=== PATIENT | male | born 1940 | race Caucasian/White ===

== ENCOUNTER 2023-09-07 17:02 | Inpatient (IN) | payer MEDICARE ==
[~2023-09-07] VITALS: Ht 177.8 cm; Wt 81.8 kg
[~2023-09-07 17:02] MED LIST: ASPI-611 PO; FERR325C; HYDR25TA4 PO; METF1000 PO; OMEP20TA43 PO
[2023-09-07 21:01] LABS: BASOPHILS # (AUTO) 0.1 X10'3 (0-0.2); BASOPHILS % (AUTO) 1.5 % (0-1); EOSINOPHILS % (AUTO) 0.7 % (0-6); LYMPHOCYTES # (AUTO) 1.4 X10'3 (1.1-4.8); LYMPHOCYTES % (AUTO) 20.3 % (21-51); MEAN CORPUSCULAR HEMOGLOBIN 22.3 PG (27.0-31.0); MEAN CORPUSCULAR HGB CONC 31.7 g/dL (33.0-36.5); MEAN CORPUSCULAR VOLUME 70.4 FL (78-98); MONOCYTES # (AUTO) 0.8 X10'3 (0-0.9); MONOCYTES % (AUTO) 11.5 % (2-12); NEUTROPHILS # (AUTO) 4.6 X10'3 (1.8-7.7); PLATELET COUNT 261 X10'3 (140-440); RED BLOOD COUNT 2.29 X10'6 (4.70-6.10); RED CELL DISTRIBUTION WIDTH 16.9 % (11.5-14.5); WHITE BLOOD COUNT 6.9 X10'3 (4.5-11.0)
[2023-09-07 21:07] LABS: HEMATOCRIT 16.1 % (42.0-52.0); HEMOGLOBIN 5.1 g/dl (14.0-17.9)
[2023-09-07 21:19] LABS: ALBUMIN 4.1 G/DL (3.4-5.0); ANION GAP 14 (8-16); BLOOD UREA NITROGEN 40 MG/DL (7-18); BUN/CREATININE RATIO 18.9 (10.0-20.0); CALCIUM 9.6 MG/DL (8.5-10.1); CHLORIDE 104 MMOL/L (99-107); CREATININE 2.12 MG/DL (0.60-1.10); GLUCOSE 151 MG/DL (70-104); POTASSIUM 4.8 MMOL/L (3.5-5.1); PRO BRAIN NATRIURETIC PEPTIDE 2604 PG/ML (0-450); SODIUM 140 MMOL/L (135-145); TOTAL CARBON DIOXIDE 21.9 MMOL/L (24-32); eCRCL 26 ML/MIN; eGFR 30 ML/MIN
[2023-09-07] MEDS ORDERED: magnesium Cl slow-release 64mg tablet PO PRN (22:30)
[2023-09-07] MEDS ORDERED: mag hydrox/Alum hydrox/simeth 30ml oral suspension PO PRN (22:30)
[2023-09-07] MEDS ORDERED: magnesium 4gm in 100ml NS 100 ML IV PRN (22:30)
[2023-09-07] MEDS ORDERED: magnesium hydroxide 30ml (MOM) UD suspension PO PRN (22:30)
[2023-09-07] MEDS ORDERED: ondansetron/PF 4mg/2ml inj IV PRN (22:30)
[2023-09-07] MEDS ORDERED: magnesium 2GM in 50ml NS 50 ML IV PRN (22:30)
[2023-09-07] MEDS ORDERED: potassium Cl 20 mEq SR tablet PO PRN (22:30)
[2023-09-07] MEDS ORDERED: potassium Cl 40MEQ/1/2NS 520ml 520 ML IV PRN (22:30)
[2023-09-07 22:49] VITALS: BP 151/70; PULSE 87; RESP 16; TEMP 98.6
[2023-09-07 23:00] LABS: ALANINE AMINOTRANSFERASE 20 U/L (12-78); ALBUMIN/GLOBULIN RATIO 1.4 (1.1-1.5); ALKALINE PHOSPHATASE 36 IU/L (46-116); ASPARTATE AMINO TRANSFERASE 17 U/L (10-37); BILIRUBIN,DIRECT 0.1 MG/DL (0-0.3); BILIRUBIN,TOTAL 0.4 MG/DL (0.1-1.0); PHOSPHORUS 4.3 MG/DL (2.3-4.5); TOTAL PROTEIN 7.1 G/DL (6.4-8.2)
[2023-09-07] MEDS ORDERED: glucagon, human recombinant 1mg kit SUBCUT PRN (23:00)
[2023-09-07] MEDS ORDERED: dextrose 50%-water 50ml dispensing syringe IV PRN ×2 (23:00)
[2023-09-07] MEDS ORDERED: DEXTROSE 15 GM of carb/4 tabs (each vial/BOTTLE has 4 tablets) PO PRN ×2 (23:00)
[2023-09-07 23:03] LABS: APTT 20 SECONDS (22-32); PROTHROMBIN TIME 10.9 SECONDS (9.0-12.0)
[2023-09-07 23:06] VITALS: BP 146/61; PULSE 84; RESP 15; TEMP 98.8
[2023-09-07 23:23] LABS: HEMOGLOBIN A1C 5.5 % (4.5-6.2)
[2023-09-07 23:52] LABS: BILIRUBIN,URINE NEGATIVE (Neg); CLARITY,URINE CLEAR (Clear); COLOR,URINE YELLOW (Yellow); GLUCOSE, URINE NEGATIVE (Neg); KETONES,URINE NEGATIVE (Neg); LEUKOCYTE ESTERASE ,URINE NEGATIVE (Neg); NITRITES, URINE NEGATIVE (Neg); OCCULT BLOOD,URINE NEGATIVE (Neg); PH,URINE 5.5 (4.8-8.0); PROTEIN,URINE NEGATIVE (Neg); UROBILINOGEN,URINE 0.2 E.U/dL (0.2-1.0)
[2023-09-08] VITALS (25 sets, daily range): BP systolic 102–157; BP diastolic 46–83; PULSE 64–108; RESP 12–20; TEMP 97.2–99.3; O2SAT 96–99
[2023-09-08 00:03] LABS: UA COLLECTION TYPE NON-SPECIFIED
[2023-09-08] MEDS: pantoprazole 40 MG vial IV ONE (00:21)
[2023-09-08] MEDS: furosemide 10 MG/1 ML 10ml inj IV ONE (00:22)
[2023-09-08] MEDS: pantoprazole 40MG/NS 100ML BAG 100 ML IV SCH (01:52)
[2023-09-08] MEDS: hydrALAZINE 20mg/ml inj. IV SCH (02:36)
[2023-09-08 03:07] LABS: MEAN CORPUSCULAR HEMOGLOBIN 23.7 PG (27.0-31.0); MEAN CORPUSCULAR HGB CONC 31.8 g/dL (33.0-36.5); MEAN CORPUSCULAR VOLUME 74.6 FL (78-98); MEAN PLATELET VOLUME 8.1 FL (7.4-10.4); PLATELET COUNT 215 X10'3 (140-440); RED BLOOD COUNT 2.38 X10'6 (4.70-6.10); RED CELL DISTRIBUTION WIDTH 19.5 % (11.5-14.5); WHITE BLOOD COUNT 5.7 X10'3 (4.5-11.0)
[2023-09-08 03:16] LABS: HEMOGLOBIN 5.6 g/dl (14.0-17.9)
[2023-09-08 03:17] LABS: HEMATOCRIT 17.7 % (42.0-52.0)
[2023-09-08 03:43] LABS: ANISOCYTOSIS 1+; HYPOCHROMASIA 1+; MICROCYTOSIS 1+; PLATELET ESTIMATE NORMAL
[2023-09-08 03:44] LABS: BURR CELLS FEW; ELLIPTOCYTES FEW; SCHISTOCYTES FEW; TARGET CELLS FEW
[2023-09-08 06:30] LABS: BASOPHILS # (AUTO) 0.1 X10'3 (0-0.2); BASOPHILS % (AUTO) 1.4 % (0-1); EOSINOPHILS # (AUTO) 0.1 X10'3 (0-0.9); LYMPHOCYTES # (AUTO) 1.5 X10'3 (1.1-4.8); LYMPHOCYTES % (AUTO) 17.9 % (21-51); MEAN CORPUSCULAR HEMOGLOBIN 24.3 PG (27.0-31.0); MEAN CORPUSCULAR HGB CONC 32.7 g/dL (33.0-36.5); MEAN CORPUSCULAR VOLUME 74.5 FL (78-98); MEAN PLATELET VOLUME 8.1 FL (7.4-10.4); MONOCYTES # (AUTO) 1.2 X10'3 (0-0.9); MONOCYTES % (AUTO) 13.8 % (2-12); NEUTROPHILS # (AUTO) 5.6 X10'3 (1.8-7.7); NEUTROPHILS % (AUTO) 65.9 % (42-75); PLATELET COUNT 243 X10'3 (140-440); RED BLOOD COUNT 2.86 X10'6 (4.70-6.10); RED CELL DISTRIBUTION WIDTH 20.2 % (11.5-14.5); WHITE BLOOD COUNT 8.5 X10'3 (4.5-11.0)
[2023-09-08 06:37] LABS: HEMATOCRIT 21.3 % (42.0-52.0)
[2023-09-08 06:45] LABS: ALBUMIN 3.8 G/DL (3.4-5.0); ANION GAP 14 (8-16); BLOOD UREA NITROGEN 40 MG/DL (7-18); BUN/CREATININE RATIO 19.1 (10.0-20.0); CALCIUM 9.4 MG/DL (8.5-10.1); CHLORIDE 104 MMOL/L (99-107); CHOL/HDL RATIO 2.6 (0.00-4.99); CHOLESTEROL 121 MG/DL (0-200); CREATININE 2.09 MG/DL (0.60-1.10); GLUCOSE 137 MG/DL (70-104); HDL CHOLESTEROL 47 MG/DL (35-60); LDL CHOLESTEROL 58 MG/DL (50-100); SODIUM 141 MMOL/L (135-145); TOTAL CARBON DIOXIDE 23.3 MMOL/L (24-32); TRIGLYCERIDES 147 MG/DL (20-135); eCRCL 27 ML/MIN; eGFR 30 ML/MIN
[2023-09-08] MEDS: INSULIN LISPRO 100 UNIT/ML INSULN.PEN MULTI-DOSE SQ SCH (07:00)
[2023-09-08] MEDS: K and/or MAG REPLACEMENT MC SCH (08:00)
[2023-09-08] MEDS ORDERED: ferrous sulfate 325mg tablet PO SCH (08:00)
[2023-09-08] MEDS: furosemide 20 MG/2 ML vial IV ONE (08:54)
[2023-09-08 09:12] LABS: MEAN CORPUSCULAR HEMOGLOBIN 24.2 PG (27.0-31.0); MEAN CORPUSCULAR VOLUME 75.7 FL (78-98); MEAN PLATELET VOLUME 7.8 FL (7.4-10.4); PLATELET COUNT 217 X10'3 (140-440); RED BLOOD COUNT 2.86 X10'6 (4.70-6.10); RED CELL DISTRIBUTION WIDTH 20.4 % (11.5-14.5); WHITE BLOOD COUNT 6.3 X10'3 (4.5-11.0)
[2023-09-08 09:22] LABS: HEMATOCRIT 21.7 % (42.0-52.0); HEMOGLOBIN 6.9 g/dl (14.0-17.9)
[2023-09-08 11:41] LABS: HEMATOCRIT 22.7 % (42.0-52.0); HEMOGLOBIN 7.4 g/dl (14.0-17.9); MEAN CORPUSCULAR HEMOGLOBIN 24.5 PG (27.0-31.0); MEAN CORPUSCULAR HGB CONC 32.6 g/dL (33.0-36.5); MEAN CORPUSCULAR VOLUME 75.1 FL (78-98); MEAN PLATELET VOLUME 7.8 FL (7.4-10.4); PLATELET COUNT 223 X10'3 (140-440); RED BLOOD COUNT 3.02 X10'6 (4.70-6.10); RED CELL DISTRIBUTION WIDTH 20.6 % (11.5-14.5); WHITE BLOOD COUNT 6.2 X10'3 (4.5-11.0)
[2023-09-08] MEDS ORDERED: LISI40TA13 PO (12:27)
[2023-09-08] MEDS ORDERED: SIMV-45 PO (12:27)
[2023-09-08] MEDS ORDERED: CLOP75TA34 PO (12:27)
[2023-09-08] MEDS ORDERED: IBUP-49 PO (12:31)
[2023-09-08] MEDS ORDERED: fentaNYL/PF 50MCG/1 ML 2ML syringe ONE (14:32)
[2023-09-08] MEDS ORDERED: diphenhydrAMINE 50 mg/ml inj ONE (14:33)
[2023-09-08] MEDS ORDERED: LIDOcaine 2% Viscous 15ml cup ONE (14:33)
[2023-09-08] MEDS ORDERED: MIDAZolam 1 MG/ML 5ML VIAL ONE (14:33)
[2023-09-08 17:49] LABS: HEMATOCRIT 24.8 % (42.0-52.0); HEMOGLOBIN 8.3 g/dl (14.0-17.9); MEAN CORPUSCULAR HEMOGLOBIN 25.4 PG (27.0-31.0); MEAN CORPUSCULAR HGB CONC 33.5 g/dL (33.0-36.5); MEAN CORPUSCULAR VOLUME 75.8 FL (78-98); MEAN PLATELET VOLUME 7.8 FL (7.4-10.4); PLATELET COUNT 210 X10'3 (140-440); RED BLOOD COUNT 3.27 X10'6 (4.70-6.10); RED CELL DISTRIBUTION WIDTH 20.2 % (11.5-14.5); WHITE BLOOD COUNT 6.8 X10'3 (4.5-11.0)
[2023-09-08] MEDS: PEG 3350/Na sulf,bicarb,Cl/KCl oral sol 4 liter bottle PO ONE (19:25)
[2023-09-08] MEDS: HYDROchlorothiazide 25mg tablet PO SCH (20:55)
[2023-09-09] VITALS (13 sets, daily range): BP systolic 101–161; BP diastolic 40–75; PULSE 60–114; RESP 13–21; TEMP 97.2–97.8; O2SAT 95–100
[2023-09-09 00:21] LABS: HEMOGLOBIN 8.2 g/dl (14.0-17.9); MEAN CORPUSCULAR HEMOGLOBIN 25.7 PG (27.0-31.0); MEAN CORPUSCULAR VOLUME 75.6 FL (78-98); MEAN PLATELET VOLUME 8.1 FL (7.4-10.4); PLATELET COUNT 206 X10'3 (140-440); RED BLOOD COUNT 3.17 X10'6 (4.70-6.10); RED CELL DISTRIBUTION WIDTH 20.4 % (11.5-14.5); WHITE BLOOD COUNT 6.8 X10'3 (4.5-11.0)
[2023-09-09 07:00] LABS: BASOPHILS # (AUTO) 0.1 X10'3 (0-0.2); BASOPHILS % (AUTO) 1.3 % (0-1); EOSINOPHILS # (AUTO) 0.1 X10'3 (0-0.9); EOSINOPHILS % (AUTO) 1.1 % (0-6); HEMATOCRIT 24.9 % (42.0-52.0); HEMOGLOBIN 8.3 g/dl (14.0-17.9); LYMPHOCYTES # (AUTO) 1.4 X10'3 (1.1-4.8); LYMPHOCYTES % (AUTO) 20.4 % (21-51); MEAN CORPUSCULAR HEMOGLOBIN 25.1 PG (27.0-31.0); MEAN CORPUSCULAR HGB CONC 33.3 g/dL (33.0-36.5); MEAN CORPUSCULAR VOLUME 75.3 FL (78-98); MONOCYTES # (AUTO) 0.9 X10'3 (0-0.9); MONOCYTES % (AUTO) 13.5 % (2-12); NEUTROPHILS # (AUTO) 4.4 X10'3 (1.8-7.7); NEUTROPHILS % (AUTO) 63.7 % (42-75); PLATELET COUNT 212 X10'3 (140-440); RED BLOOD COUNT 3.31 X10'6 (4.70-6.10); RED CELL DISTRIBUTION WIDTH 20.3 % (11.5-14.5); WHITE BLOOD COUNT 6.9 X10'3 (4.5-11.0)
[2023-09-09 07:17] LABS: ALBUMIN 3.6 G/DL (3.4-5.0); ANION GAP 13 (8-16); BLOOD UREA NITROGEN 39 MG/DL (7-18); BUN/CREATININE RATIO 16.2 (10.0-20.0); CALCIUM 8.9 MG/DL (8.5-10.1); CHLORIDE 104 MMOL/L (99-107); CREATININE 2.41 MG/DL (0.60-1.10); GLUCOSE 123 MG/DL (70-104); POTASSIUM 3.4 MMOL/L (3.5-5.1); SODIUM 143 MMOL/L (135-145); TOTAL CARBON DIOXIDE 26.3 MMOL/L (24-32); eCRCL 23 ML/MIN; eGFR 26 ML/MIN
[2023-09-09 07:38] LABS: ANISOCYTOSIS 3+; PLATELET ESTIMATE NORMAL
[2023-09-09 07:39] LABS: MICROCYTOSIS 1+
[2023-09-09 07:40] LABS: ACANTHOCYTES FEW; HYPOCHROMASIA 1+; SCHISTOCYTES FEW
[2023-09-09 07:41] LABS: ELLIPTOCYTES FEW; POLYCHROMASIA FEW
[2023-09-09 07:42] LABS: TARGET CELLS FEW
[2023-09-09] MEDS: potassium Cl 20 mEq SR tablet PO PRN (08:29)
[2023-09-09] MEDS: atorvastatin 20mg tablet PO SCH (08:29)
[2023-09-09] MEDS: lisinopril 20mg tablet PO SCH (08:33)
[2023-09-09] MEDS ORDERED: fentaNYL/PF 50MCG/1 ML 2ML syringe ONE (16:32)
[2023-09-09] MEDS ORDERED: diphenhydrAMINE 50 mg/ml inj ONE (16:32)
[2023-09-09] MEDS ORDERED: MIDAZolam 1 MG/ML 5ML VIAL ONE (16:32)
[2023-09-09 17:00] LABS: CREATININE, URINE 66.1 mg/dL (Not Estab.)
[2023-09-10 06:40] LABS: BASOPHILS # (AUTO) 0.1 X10'3 (0-0.2); BASOPHILS % (AUTO) 1.8 % (0-1); EOSINOPHILS # (AUTO) 0.2 X10'3 (0-0.9); EOSINOPHILS % (AUTO) 3.3 % (0-6); HEMATOCRIT 24.9 % (42.0-52.0); HEMOGLOBIN 8.2 g/dl (14.0-17.9); LYMPHOCYTES # (AUTO) 1.7 X10'3 (1.1-4.8); LYMPHOCYTES % (AUTO) 24.3 % (21-51); MEAN CORPUSCULAR HEMOGLOBIN 25.3 PG (27.0-31.0); MEAN CORPUSCULAR HGB CONC 32.8 g/dL (33.0-36.5); MEAN CORPUSCULAR VOLUME 77.1 FL (78-98); MEAN PLATELET VOLUME 8.1 FL (7.4-10.4); MONOCYTES # (AUTO) 1.2 X10'3 (0-0.9); NEUTROPHILS # (AUTO) 3.8 X10'3 (1.8-7.7); NEUTROPHILS % (AUTO) 53.6 % (42-75); PLATELET COUNT 220 X10'3 (140-440); RED BLOOD COUNT 3.23 X10'6 (4.70-6.10); WHITE BLOOD COUNT 7.1 X10'3 (4.5-11.0)
[2023-09-10 06:47] LABS: ALBUMIN 3.5 G/DL (3.4-5.0); ANION GAP 11 (8-16); BLOOD UREA NITROGEN 37 MG/DL (7-18); BUN/CREATININE RATIO 14.7 (10.0-20.0); CALCIUM 8.6 MG/DL (8.5-10.1); CHLORIDE 103 MMOL/L (99-107); CREATININE 2.51 MG/DL (0.60-1.10); GLUCOSE 115 MG/DL (70-104); POTASSIUM 3.5 MMOL/L (3.5-5.1); SODIUM 141 MMOL/L (135-145); TOTAL CARBON DIOXIDE 26.7 MMOL/L (24-32); eCRCL 22 ML/MIN; eGFR 25 ML/MIN
[2023-09-10 07:00] VITALS: BP 153/69; PULSE 73; RESP 18; TEMP 97.7; O2SAT 98
[2023-09-10 07:35] LABS: ANISOCYTOSIS 3+; MICROCYTOSIS 1+; PLATELET ESTIMATE NORMAL; TOTAL CELLS COUNTED 100
[2023-09-10 07:36] LABS: ACANTHOCYTES FEW; ELLIPTOCYTES FEW; HYPOCHROMASIA 1+; SCHISTOCYTES FEW
[2023-09-10 11:00] VITALS: BP 120/53; PULSE 96; RESP 16; TEMP 98.1; O2SAT 96
[2023-09-10] MEDS ORDERED: AMLO5TAB16 PO (12:15)
[2023-09-10] MEDS ORDERED: METO-395 PO (12:15)
[2023-09-10] MEDS ORDERED: PANT40TA54 PO (12:15)
== END 2023-09-10 15:42 | disposition home health service (06) | DRG 377 ==
LOC: ER 17:03 → ED HOLD 22:39 → EDBEDREQ 23:19 → PCU 3S 09-08 00:15
PROVIDERS: ADMIT Student in an Organized Health Care Education/Training Program; ATTEND Family Medicine
PROC: 30233N1 Transfusion of Nonautologous Red Blood Cells into Peripheral Vein, Percutaneous Approach (ICD-10-PCS; 2023-09-07)
PROC: 0DB78ZX Excision of Stomach, Pylorus, Via Natural or Artificial Opening Endoscopic, Diagnostic (ICD-10-PCS; principal; 2023-09-08)
PROC: 0DBP8ZZ Excision of Rectum, Via Natural or Artificial Opening Endoscopic (ICD-10-PCS; 2023-09-09)
DX: K29.01 Acute gastritis with bleeding (principal); I21.A1 Myocardial infarction type 2; N17.9 Acute kidney failure, unspecified; D62 Acute posthemorrhagic anemia; I50.30 Unspecified diastolic (congestive) heart failure; K57.31 Diverticulosis of large intestine without perforation or abscess with bleeding; D12.8 Benign neoplasm of rectum; R19.5 Other fecal abnormalities; E11.51 Type 2 diabetes mellitus with diabetic peripheral angiopathy without gangrene; I11.0 Hypertensive heart disease with heart failure; Z79.82 Long term (current) use of aspirin; Z79.899 Other long term (current) drug therapy; Z79.84 Long term (current) use of oral hypoglycemic drugs; Z87.891 Personal history of nicotine dependence
CPT/HCPCS: 36415; 36430; 43239; 45385; 70450; 71045; 80048; 80061; 80076; 81003; 82043; 82570; 82948; 83036; 83880; 84100; 84484; 85007; 85008; 85025; 85027; 85610; 85730; 86885; 86900; 86901; 86920; 87081; 88305; 88342; 93005; 93306; 97116; 97161; 97530; 99152; 99153; 99285; A4615; A4620; C1889; C9113; G0378; J0360; J1200; J1815; J1940; J2250; J3010; J7030; J7040; P9016

== ENCOUNTER 2023-09-23 08:40 | Emergency (ER) | payer MEDICARE ==
[~2023-09-23] VITALS: Ht 177.8 cm; Wt 91.0 kg
[~2023-09-23 08:40] MED LIST changes: +AMLO5TAB16 PO; -ASPI-611 PO; +CLOP75TA34 PO; -FERR325C; -HYDR25TA4 PO; +METO-395 PO; -OMEP20TA43 PO; +PANT40TA54 PO; +SIMV-45 PO
[2023-09-23 08:47] VITALS: BP 115/69; PULSE 62; RESP 16; TEMP 98.7; O2SAT 99
[2023-09-23] MEDS ORDERED: AMLO5TAB16 PO (09:16)
[2023-09-23] MEDS ORDERED: METO-395 PO (09:16)
== END 2023-09-23 09:21 | disposition home or self-care (01) ==
LOC: ER 08:40
DX: Z76.0 Encounter for issue of repeat prescription (principal); I10 Essential (primary) hypertension
CPT/HCPCS: 99281

== ENCOUNTER 2025-02-03 07:20 | Day surgery (SDC) | payer MEDICARE ==
[2025-02-03] VITALS (7 sets, daily range): BP systolic 123–152; BP diastolic 53–59; PULSE 62–90; RESP 15–18; TEMP 96.7; O2SAT 90–100
[~2025-02-03] VITALS: Ht 175.3 cm; Wt 82.4 kg
[~2025-02-03 07:20] MED LIST changes: +AMLO-708 PO; -AMLO5TAB16 PO; +FURO20TA4 PO; +HYDR25TA5 PO; +LISI10TA27 PO; -METF1000 PO; -METO-395 PO; +ringers solution, lacted 1,000 ML IV SCH
[2025-02-03] MEDS ORDERED: simethicone 40mg/0.6ml oral drops 15ml ONE (08:00)
[2025-02-03] MEDS ORDERED: MIDAZolam 1 MG/ML 5ML VIAL ONE (09:50)
[2025-02-03] MEDS ORDERED: fentaNYL/PF 50MCG/1 ML 2ML syringe ONE (09:50)
== END 2025-02-03 10:44 | disposition home or self-care (01) ==
LOC: PAS 07:20
PROVIDERS: ATTEND Internal Medicine Gastroenterology
DX: K92.1 Melena (principal); K64.8 Other hemorrhoids; K57.30 Diverticulosis of large intestine without perforation or abscess without bleeding; D50.9 Iron deficiency anemia, unspecified; E11.9 Type 2 diabetes mellitus without complications; E78.5 Hyperlipidemia, unspecified; I10 Essential (primary) hypertension; K21.9 Gastro-esophageal reflux disease without esophagitis; M19.90 Unspecified osteoarthritis, unspecified site; Z85.46 Personal history of malignant neoplasm of prostate; Z98.890 Other specified postprocedural states
CPT/HCPCS: 45378; 82948; A4620; J2250; J3010; J7120; Z7512; Z7610; 99152; 99153